=== PATIENT | male | born 1945 | race Caucasian/White ===

== ENCOUNTER → 2016-09-05 | Outpatient (CLI) | payer OTHER, BC ==
--- NOTE | 2016-09-05 17:33 | MR ---
MRI Pelvis Without Contrast History: Pelvic pain. Left buttock pain. Evaluate for sacroiliitis. History of prior lumbar surgery. Comparison: MRI from July 2016. Technique: MRI is performed of the pelvis using a 3 Lynette MRI system. Sagittal, coronal, and axial im aging was obtained with standard imaging sequences. [id number] is optimized to evaluate the sacroi liac joints. Findings: No evidence of bone marrow edema or erosion to indicate sacroiliitis. No evidence for osseo us bridging of the sacroiliac joints. No evidence of bone marrow edema to indicate insufficiency or s tress fracture of the sacrum. Sacral foramina are widely patent. There is degenerative disk and degenerative joint disease in the lower lumbar spine and evidence of l eft laminectomy. Edema is seen in the paraspinous musculature on the left. No evidence for avascular necrosis of the femoral head or stress fracture of the femoral neck. No elizabeth dence for joint effusion. There is mild early degenerative change in both hips. Enlarged nodular nons pecific prostate. Mild abnormal signal intensity is seen in the left common hamstring tendon origin w ithout edema or attenuation. Impression: 1. No evidence for sacroiliitis. 2. Degenerative disk and degenerative joint disease in the lower lumbar spine and evidence of prior s urgery. 3. Mild degenerative change in both hips. 4. Mild tendinopathy of the left common hamstring tendon origin. 5. Enlarged nonspecific prostate.
== END ==
LOC: FIMAGING 13:57
PROVIDERS: ATTEND Physical Medicine & Rehabilitation
DX: M46.1 Sacroiliitis, not elsewhere classified (principal); M51.36 Other intervertebral disc degeneration, lumbar region; M16.0 Bilateral primary osteoarthritis of hip; N40.0 Benign prostatic hyperplasia without lower urinary tract symptoms

== ENCOUNTER 2018-10-29 20:23 | Observation (INO) | payer OTHER, BC ==
[2018-10-29 21:28] LABS: PLATELET COUNT 307 10^3/uL (150-400)
--- NOTE | 2018-10-29 21:32 | EDPHY ---
H & P Time Seen by Provider: 10/29/18 20:41 HPI/ROS: HPI High blood pressure. Headache. Speech disturbance. 73-year-old male by private vehicle with his . The 2 of them or out to dinner about an hour prior to arrival to the emergency department. During dinner he developed a left-sided suboccipital headache which he described as gradual in onset, and tight in nature. He specifically describes having a muscle like tightness at the base of his skull going into his neck. He reports this feels better now. His noticed the during dinner he was mixing up syllables. This lasted for about 10 min. He has had difficulty controlling his blood pressure. She was concerned that he might be having stroke symptoms. She drove [place] to the emergency department for evaluation. ROS: Constitutional: No fever, no chills. As above. Eyes: No discharge. No changes in vision. ENT: No sore throat. No nasal congestion or rhinorrhea. Respiratory: No cough. No shortness of breath. Cardiac: No chest pain, no palpitations. Gastrointestinal: No abdominal pain, no vomiting, no diarrhea. Genitourinary: No hematuria. No dysuria or increased frequency with urination. Musculoskeletal: No back pain. No neck pain. No myalgias or arthralgias. As above. Skin: No rashes. Neurological: As above. No focal weakness or altered sensation. Past medical history: Hypertension, depression. He is currently managed at [facility] via Dr. Liu. Social history: Nonsmoker. Drinks alcohol rarely and socially. No IV drugs or street drugs. . [place] [address] [place] Physical Exam: General Appearance: Alert, no distress. This patient is responding to questions appropriately and in full sentences. This patient appears well- hydrated and well-nourished. Eyes: Pupils equal and round no pallor or injection. No lid edema, erythema or injection. Respiratory: There are no retractions, lungs are clear to auscultation with good air movement bilaterally. Cardiovascular: Regular rate and rhythm. No murmur. Gastrointestinal: Abdomen is soft and nontender, no masses, bowel sounds normal. No focal tenderness at McBurney's point. No Shepherd sign. Neurological: Motor sensory function is grossly intact. Cranial nerves are normal. No dysphagia or dysarthria. Cerebellar function is normal. Gait is normal. Skin: Warm and dry, no rashes. Musculoskeletal: Neck is supple and nontender. Extremities are symmetrical. All joints range without pain or impingement. Psychiatric: No agitation. No depression. Database: EKG: EKG time is 8:48 p.m.; EKG shows a narrow complex normal sinus rhythm with a ventricular rate of 72. Left ventricular hypertrophy noted. The KS, QRS, QT intervals are within normal limits. There are no ST-T wave changes indicative of ischemic or injury pattern. No evidence of right heart strain. Interpreted by me. Imaging: MRI of brain diffusion-weighted without contrast: Age-related changes. No evidence of infarct. Results discussed with staff radiologist Dr. Leandro Webster. Procedures: Emergency department course: Triage vital signs reviewed. On my evaluation is blood pressure is 178 over 100. He currently denies any significant headache. His neurologic exam is nonfocal. Both he and his were very concerned regarding his elevated blood pressure in the possibility of a stroke-like syndrome. MRI of the brain without contrast to be obtained. I explained and he them that I wanted to watch him and see if his blood pressure came down on its own in the emergency department. I explained to them that I did not feel his blood pressure needed to be emergently lowered at this time. 10:30 p.m., the patient was re-evaluated, resting comfortably at this time. Repeat neurologic Assessment is nonfocal. Discussed results of blood work and EKG. Results of MRI pending. Blood pressure currently 159/108. 10:45 p.m., the patient was re-evaluated. Repeat neurologic exam is nonfocal. Results of MRI discussed with the patient and his . His does not feel comfortable taking him home tonight because of their remote location. We will admit the patient for observation overnight by the hospitalist service. Both he and his endorse. Hospitalist paged. 10:50 p.m., spoke with on-call hospitalist, Dr. Patel. Case discussed in detail. Patient accepted for admission to the hospitalist service. CT angiogram of head neck to be obtained from the emergency department. Results will be reported to Dr. Patel. The patient's remaining emergency department course under my care has been uneventful. He was admitted to telemetry observation in stable condition. Differential Diagnosis: The differential diagnosis on this patient includes but is not limited to TIA, uncontrolled hypertension. Hypertensive encephalopathy unlikely. Hypertensive emergency unlikely. This represents a partial list of diagnoses considered. These considerations are based on history, physical exam, past history, reassessment and diagnostic testing. Smoking Status: Never smoked Constitutional: Initial Vital Signs Temperature (C) 36.9 C 10/29/18 20:25 Heart Rate 80 10/29/18 20:25 Respiratory Rate 16 10/29/18 20:25 Blood Pressure 183/109 H 10/29/18 20:25 O2 Sat (%) 97 10/29/18 20:25 O2 Delivery Mode Room Air Allergies/Adverse Reactions: No Known Allergies Allergy (Unverified 10/29/18 20:32) Home Medications: Medication Instructions Recorded Cetirizine HCl 10/29/18 Cymbalta 10/29/18 Diclofenac Sodium 10/29/18 Losartan/Hctz 50/12.5 10/29/18 Metoprolol ER-Hctz 100-12.5 mg 10/29/18 Omeprazole 10/29/18 Ranitidine HCl 10/29/18 Medical Decision Making - Diagnostics Imaging Results: Imaging Impressions Brain MRI 10/29/18 21:21 Impression: 1. Mild to moderate cerebral atrophy. 2. Mild nonspecific hyperintense T2/FLAIR signal abnormalities in the white matter of bilateral cerebral hemispheres. Differential diagnosis includes microvascular ischemic disease, post-infectious/post-inflammatory sequela, atypical demyelinating disease, or migraine-related sequela. 3. No acute infarct, hemorrhage, hydrocephalus, mass effect, or herniation. If symptoms worsen, additional imaging may be necessary. Findings discussed with Dung Mcclain MD at 22:27 hour, 10/29/2018. - Data Points Laboratory Results: Laboratory Results 10/29/18 20:45 10/29/18 20:45 10/29/18 10/29/18 10/29/18 20:52 20:52 20:45 WBC RBC Hgb POC Hgb 14.6 gm/dL gm/dL (13.7-17.5) Hct POC Hct 43 % % (40-51) MCV MCH MCHC RDW Plt Count MPV Neut % (Auto) Lymph % (Auto) Motley % (Auto) Eos % (Auto) Baso % (Auto) Nucleat RBC Rel Count Absolute Neuts (auto) Absolute Lymphs (auto) Absolute Monos (auto) Absolute Eos (auto) Absolute Basos (auto) Absolute Nucleated RBC Immature Gran % Immature Gran # POC Sodium 143 mEq/L mEq/L (135-145) Sodium 140 mEq/L mEq/L (135-145) POC Potassium 4.4 mEq/L mEq/L (3.3-5.0) Potassium 3.5 mEq/L mEq/L (3.5-5.2) POC Chloride 108 mEq/L mEq/L (97-110) Chloride 108 mEq/L mEq/L (97-110) Carbon Dioxide 22 mEq/l mEq/l (22-31) POC Total CO2 24 mEq/L mEq/L (22-31) Anion Gap 10 mEq/L mEq/L (6-14) POC BUN 23 mg/dL mg/dL (7-23) BUN 19 mg/dL mg/dL (7-23) Creatinine 0.9 mg/dL mg/dL (0.7-1.3) POC Creatinine 1.0 mg/dL mg/dL (0.7-1.3) Estimated GFR > 60 Glucose 100 mg/dL mg/dL (70-100) POC Glucose 96 mg/dL mg/dL (70-100) Calcium 9.2 mg/dL mg/dL (8.5-10.4) POC Troponin I 0.01 ng/mL ng/mL (0.00-0.08) 10/29/18 20:45 WBC 7.41 10^3/uL 10^3/uL (3.80-9.50) RBC 5.13 10^6/uL 10^6/uL (4.40-6.38) Hgb 14.2 g/dL g/dL (13.7-17.5) POC Hgb Hct 42.6 % % (40.0-51.0) POC Hct MCV 83.0 fL fL (81.5-99.8) MCH 27.7 pg L pg (27.9-34.1) MCHC 33.3 g/dL g/dL (32.4-36.7) RDW 14.5 % % (11.5-15.2) Plt Count 307 10^3/uL 10^3/uL (150-400) MPV 9.0 fL fL (8.7-11.7) Neut % (Auto) 64.7 % % (39.3-74.2) Lymph % (Auto) 19.4 % % (15.0-45.0) Motley % (Auto) 13.1 % H % (4.5-13.0) Eos % (Auto) 2.0 % % (0.6-7.6) Baso % (Auto) 0.7 % % (0.3-1.7) Nucleat RBC Rel Count 0.0 % % (0.0-0.2) Absolute Neuts (auto) 4.79 10^3/uL 10^3/uL (1.70-6.50) Absolute Lymphs (auto) 1.44 10^3/uL 10^3/uL (1.00-3.00) Absolute Monos (auto) 0.97 10^3/uL H 10^3/uL (0.30-0.80) Absolute Eos (auto) 0.15 10^3/uL 10^3/uL (0.03-0.40) Absolute Basos (auto) 0.05 10^3/uL 10^3/uL (0.02-0.10) Absolute Nucleated RBC 0.00 10^3/uL 10^3/uL (0-0.01) Immature Gran % 0.1 % % (0.0-1.1) Immature Gran # 0.01 10^3/uL 10^3/uL (0.00-0.10) POC Sodium Sodium POC Potassium Potassium POC Chloride Chloride Carbon Dioxide POC Total CO2 Anion Gap POC BUN BUN Creatinine POC Creatinine Estimated GFR Glucose POC Glucose Calcium POC Troponin I Point of Care Test Results: Chemistry 10/29/18 10/29/18 20:52 20:52 POC Sodium 143 mEq/L mEq/L (135-145) POC Potassium 4.4 mEq/L mEq/L (3.3-5.0) POC Chloride 108 mEq/L mEq/L (97-110) POC Total CO2 24 mEq/L mEq/L (22-31) POC BUN 23 mg/dL mg/dL (7-23) POC Creatinine 1.0 mg/dL mg/dL (0.7-1.3) POC Glucose 96 mg/dL mg/dL (70-100) POC Troponin I 0.01 ng/mL ng/mL (0.00-0.08) ISTAT H&H 10/29/18 20:52 POC Hgb 14.6 gm/dL gm/dL (13.7-17.5) POC Hct 43 % % (40-51) Departure - Departure Disposition: [facility] Inpatient Acute Clinical Impression: Uncontrolled hypertension, Transient speech disturbance Condition: Good Referrals: Ramesh Capellan MD [Primary Care Provider] - As per Instructions
[2018-10-29] MEDS ORDERED: ONDANSETRON 4 MG/2 ML VIAL IVP PRN (22:54)
[2018-10-29] MEDS ORDERED: ACETAMINOPHEN 325 MG TAB PO PRN (22:54)
[2018-10-29] MEDS ORDERED: ONDANSETRON DISINTEGRATING 4 MG TAB PO PRN (22:54)
[2018-10-29] MEDS ORDERED: IOPAMIDOL (ISOVUE-370) 150 ML BTL IV ONE (23:00)
--- NOTE | 2018-10-29 23:55 | PDGENHP ---
History and Physical - Chief Complaint Aphasia - History of Present Illness 73 yo M w/ hx of HTN presents with transient aphasia. The patient was at dinner with his when they noted a 5-10 minutes period of transient aphasia. Per report the patient was having difficulty pronouncing words. Shortly after he developed a headache so they came in to the ED for evaluation. In the ED BP was noted to be elevated on arrival. An MRI was performed that did no demonstrate acute stroke or other pathology. At this time he denies neurologic symptoms. He is being admitted for TIA work-up and risk stratification. Case discussed with ED physician Dr. Martinez; records reviewed and summarized above. History Information - Allergies/Home Medication List Allergies/Adverse Reactions: No Known Allergies Allergy (Unverified 10/29/18 20:32) Home Medications: Cetirizine HCl 10/29/18 [Last Taken Unknown] Cymbalta 10/29/18 [Last Taken Unknown] Diclofenac Sodium 10/29/18 [Last Taken Unknown] Losartan/Hctz 50/12.5 10/29/18 [Last Taken Unknown] Metoprolol ER-Hctz 100-12.5 mg 10/29/18 [Last Taken Unknown] Omeprazole 10/29/18 [Last Taken Unknown] Ranitidine HCl 10/29/18 [Last Taken Unknown] I have personally reviewed and updated: family history, medical history - Past Medical History hypertension - Surgical History Reports: spinal surgery - Family History Positive for: CAD. Negative for: stroke - Social History Smoking Status: Never smoked Review of Systems Review of Systems: ROS: 10pt was reviewed & negative except for what was stated in HPI & below Physical Exam Physical Exam: Temp Pulse Resp BP Pulse Ox 36.9 C 86 16 159/108 H 96 10/29/18 20:25 10/29/18 22:28 10/29/18 22:28 10/29/18 22:28 10/29/18 22:28 Constitutional: no apparent distress, not in pain Eyes: PERRL Ears, Nose, Mouth, Throat: moist mucous membranes, no oral mucosal ulcers Cardiovascular: regular rate and rhythym, no murmur, rub, or gallop Respiratory: no respiratory distress, clear to auscultation Gastrointestinal: normoactive bowel sounds, soft, non-tender abdomen Skin: warm, normal color Musculoskeletal: full muscle strength, no muscle tenderness Neurologic: AAOx3, sensation intact bilaterally, CN II-XII Intact, other (NIHSS 0), No weakness, No numbness, No facial droop Psychiatric: interacting appropriately, not anxious Lab Data & Imaging Review 10/29/18 20:45 10/29/18 20:45 WBC 7.41 10^3/uL (3.80-9.50) 10/29/18 20:45 RBC 5.13 10^6/uL (4.40-6.38) 10/29/18 20:45 Hgb 14.2 g/dL (13.7-17.5) 10/29/18 20:45 POC Hgb 14.6 gm/dL (13.7-17.5) 10/29/18 20:52 Hct 42.6 % (40.0-51.0) 10/29/18 20:45 POC Hct 43 % (40-51) 10/29/18 20:52 MCV 83.0 fL (81.5-99.8) 10/29/18 20:45 MCH 27.7 pg (27.9-34.1) L 10/29/18 20:45 MCHC 33.3 g/dL (32.4-36.7) 10/29/18 20:45 RDW 14.5 % (11.5-15.2) 10/29/18 20:45 Plt Count 307 10^3/uL (150-400) 10/29/18 20:45 MPV 9.0 fL (8.7-11.7) 10/29/18 20:45 Neut % (Auto) 64.7 % (39.3-74.2) 10/29/18 20:45 Lymph % (Auto) 19.4 % (15.0-45.0) 10/29/18 20:45 Knott % (Auto) 13.1 % (4.5-13.0) H 10/29/18 20:45 Eos % (Auto) 2.0 % (0.6-7.6) 10/29/18 20:45 Baso % (Auto) 0.7 % (0.3-1.7) 10/29/18 20:45 Nucleat RBC Rel Count 0.0 % (0.0-0.2) 10/29/18 20:45 Absolute Neuts (auto) 4.79 10^3/uL (1.70-6.50) 10/29/18 20:45 Absolute Lymphs (auto) 1.44 10^3/uL (1.00-3.00) 10/29/18 20:45 Absolute Monos (auto) 0.97 10^3/uL (0.30-0.80) H 10/29/18 20:45 Absolute Eos (auto) 0.15 10^3/uL (0.03-0.40) 10/29/18 20:45 Absolute Basos (auto) 0.05 10^3/uL (0.02-0.10) 10/29/18 20:45 Absolute Nucleated RBC 0.00 10^3/uL (0-0.01) 10/29/18 20:45 Immature Gran % 0.1 % (0.0-1.1) 10/29/18 20:45 Immature Gran # 0.01 10^3/uL (0.00-0.10) 10/29/18 20:45 POC Sodium 143 mEq/L (135-145) 10/29/18 20:52 Sodium 140 mEq/L (135-145) 10/29/18 20:45 POC Potassium 4.4 mEq/L (3.3-5.0) 10/29/18 20:52 Potassium 3.5 mEq/L (3.5-5.2) 10/29/18 20:45 POC Chloride 108 mEq/L (97-110) 10/29/18 20:52 Chloride 108 mEq/L (97-110) 10/29/18 20:45 Carbon Dioxide 22 mEq/l (22-31) 10/29/18 20:45 POC Total CO2 24 mEq/L (22-31) 10/29/18 20:52 Anion Gap 10 mEq/L (6-14) 10/29/18 20:45 POC BUN 23 mg/dL (7-23) 10/29/18 20:52 BUN 19 mg/dL (7-23) 10/29/18 20:45 Creatinine 0.9 mg/dL (0.7-1.3) 10/29/18 20:45 POC Creatinine 1.0 mg/dL (0.7-1.3) 10/29/18 20:52 Estimated GFR > 60 10/29/18 20:45 Glucose 100 mg/dL (70-100) 10/29/18 20:45 POC Glucose 96 mg/dL (70-100) 10/29/18 20:52 Calcium 9.2 mg/dL (8.5-10.4) 10/29/18 20:45 POC Troponin I 0.01 ng/mL (0.00-0.08) 10/29/18 20:52 Imaging Review: Imaging Impressions Brain MRI 10/29/18 21:21 Impression: 1. Mild to moderate cerebral atrophy. 2. Mild nonspecific hyperintense T2/FLAIR signal abnormalities in the white matter of bilateral cerebral hemispheres. Differential diagnosis includes microvascular ischemic disease, post-infectious/post-inflammatory sequela, atypical demyelinating disease, or migraine-related sequela. 3. No acute infarct, hemorrhage, hydrocephalus, mass effect, or herniation. If symptoms worsen, additional imaging may be necessary. Findings discussed with Dung Mcclain MD at 22:27 hour, 10/29/2018. Head CT 10/29/18 22:55 Impression: 1. Mild to moderate atrophy. 2. No hemorrhage, mass effect, or definite acute peripheral infarct. 3. Mild nonspecific hypodensities in the white matter of bilateral cerebral hemispheres. Differential diagnosis includes microvascular ischemic disease, post-infectious/post-inflammatory sequela, atypical demyelinating disease, or migraine-related sequela. Small white matter lacunar infarcts may also have this appearance. If symptoms worsen, additional imaging may be necessary. Findings discussed with Dung Mcclain MD at 23:40 hour, 10/29/2018. Head CTA 10/29/18 22:55 Impression: 1. Mild calcified plaque at the carotid bulb bilaterally without encroachment upon the lumen. 2. Normal CT angiogram of the [place], as detailed above. 3. Moderate degenerative disk disease at C5-C6 and at C6-C7. Note: All calculations were performed using NASCET criteria. Findings discussed with Demario Yi PA-C answering for Dr. Tanner at 23:40 hour, 10/29/2018. Neck CTA 10/29/18 22:55 Impression: 1. Mild calcified plaque at the carotid bulb bilaterally without encroachment upon the lumen. 2. Normal CT angiogram of the [place], as detailed above. 3. Moderate degenerative disk disease at C5-C6 and at C6-C7. Note: All calculations were performed using NASCET criteria. Findings discussed with Demario Yi PA-C answering for Dr. Tanner at 23:40 hour, 10/29/2018. Assessment & Plan Assessment: 73 yo M w/ hx of HTN presents with possible TIA. Plan: 1. ?TIA, Acute - Patient presents after transient period of aphasia. His symptoms have now resolved and he has a normal neurologic exam. CTA Head/Neck and MRI of brain do not demonstrate acute pathology. - Admit for observation - Monitor on telemetry - TTE w/ bubble ordered - Neurology consult placed - PT/OT/INSTRUCTIONAL ASSISTANT evaluations 2. HTN - Elevated BP on arrival but improving without intervention. - continue home medications pending reconciliation 3. Chronic back pain - Manages pain with NSAIDs, Tylenol, and antidepressants. Diet - Regular pending swallow screen Code - Full Ppx - SCDs Dispo - Admit under observation status
[2018-10-30 05:10] LABS: PLATELET COUNT 278 10^3/uL (150-400)
[2018-10-30] MEDS ORDERED: ASPIRIN 325 MG TAB PO SCH (09:15)
--- NOTE | 2018-10-30 11:00 | NEUROPROG ---
Assessment: [id number] - Neurology Consult: - CC: Speech Disturbance for 10 minutes on 10/29/18 - HPI: 10/30/18: Pts reported pt has a few months of seeming slightly cognitively different. On 10/30/18 pt had 5-10 min of transient speech problems. He developed a headache after the event so came to [facility] ER. Head CT, CTA head/neck , and brain MRI all negative for acute changes or stroke. Pt admitted for TIA evaluation. DDx includes TIA versus atypical migraine or acute confusional state from underlying mild dementia. 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 WIll get 24 hour telemetry and TTE but if no concerning findings then pt can discharge on aspirin (no on prior to TIA) and statin (LDL was 112 so goal was < 70 given suspected TIA). Pt to f/u with me in clinic in 1 -6 weeks at which time we can test for any underlying dementia. - PMHx: HTN, spinal surgery - SHx: no tobacco FHx: CAD - ROS: Pt denied acute fever, total vision loss, active severe chest pain, respiratory failure, total body severe rash, total bowel/bladder incontinence, psychosis, active seizures, or active bleeding - O: VS reviewed General: Alert Eyes: Fundoscopic exam not able to visualize optic disks CV: Heart RRR, no murmur, no carotid bruit Lungs: Clear to auscultation bilaterally, no rhonchi or rales Neuro: - Mental: . Oriented x person/place/date . concentration appears normal . speech fluency/comprehension normal . memory appears normal . fund of knowledge appear intact - Cranial Nerves: . II: PERRL, VFFTC . III/IV/: EOMI, no nystagmus, normal smooth pursuits, no Ptosis . V: facial sensation intact to LT . VII: face symmetric to eye closure and smile . VIII: hearing intact to conversation . IX/X: uvula raises symmetrically . XI: SCM 5/5 B/L strength . XII: tongue protrudes midline w/nl strength - Motor: . Tone: normal tone in all 4 extremity . Strength: no pronator drift, strength 5/5 throughout (B/L delt, bic, tri, hand emergency crew supervisor, hf/he, df/pf) - Reflexes: B/L bic 2/4 - Sensory: all 4 extremity intact to light touch - Coord: CABRERA wnl - Gait: deferred - Labs: 10/29/18 CBC wnl 10/30/18- CMP Potassium 3.2L, LDL 112H - Rads: 10/29/18- Head C: no bleed 10/29/18- CTA head/neck: no significant stenosis of vessel abnl 10/29/18- Brain MRI wo: mild to mod atrophy, no acute stroke or bleed, mild white matter disease (I Personally visualized the images on 10/30/18) - Assessment: 1. TIA causing 10 min of speech disturbance on 10/29/18 - Plan: - Begin aspirin 81 mg qd for stroke prevention (Not on it prior to TIA on ) - Begin statin for LDL goal < 70 (112) - H1AC goal < 7.0 (pending) - Blood pressure < 140/90 - Agree with PT/OT/Speech to determine rehab needs - TTE, 24 hour telemetry - F/U in neurology clinic 1-6 weeks after hospital discharge, we can test for any underlying dementia at that time Objective: Vital Signs Temp Pulse Resp BP Pulse Ox 36.9 C 66 18 166/88 H 96 10/30/18 08:00 10/30/18 08:00 10/30/18 08:00 10/30/18 08:00 10/30/18 08:00 Laboratory Results 10/30/18 04:25 10/30/18 04:25 10/29/18 10/30/18 10/31/18 05:59 05:59 05:59 Output Total 500 Balance -500 Allergies/Adverse Reactions: No Known Allergies Allergy (Unverified 10/29/18 20:32)
--- NOTE | 2018-10-30 11:12 | ECHO ---
[email or web address] [address] [address] Main: [phone] Echocardiography Examination Transthoracic Name: ARIELLE BOOTH MR#: [id number] Study Date: 10/30/2018 Study Time: 09:53 AM Date of : 1945 Age: 73 year(s) Height: 177.8 cm (70 in.) Weight: 75.3 kg (166 lb.) BSA: 1.93 m2 Gender: Male Examination: Echo Contrast: Image Quality: Adequate Rhythm: Heart Rate: BP: / Indication: ?TIA Procedure Staff Referring Physician: Manufacturing Test Technician: Maryann Sarmiento REY Reading Physician: Victor Manuel Zuñiga MD Requesting Provider: Indication: ?TIA Measurements Chambers AV/MV Label Value Normal Value Label Value Normal Value IVSd, 2D 1 cm (0.6cm - 1.1cm) AV PGmax 5 mmHg LVDd, 2D 4.9 cm (4.2cm - 5.9cm) AV Vmax 1.16 m/s LVDs, 2D 3.7 cm (2.1cm - 4cm) STEFANY (continuity eq. 2.5 cm2 LVEF, 2D 50 % (54% - 74%) Vmax) LVEF, BP 53 % (55% - 70%) MV A Vmax 0.64 m/s LVOT PGmax 2 mmHg MV DT 236 ms LVOT Vmax 0.71 m/s (0.7m/s - 1.1m/s) MV E' lateral 0.04 m/s LVOTd 2.3 cm (1.9cm - 2.1cm) MV E' mean 0.04 m/s LVPWd, 2D 1.2 cm (0.6cm - 1cm) MV E' septal 0.03 m/s RVDd, 2D 4.1 cm (1.9cm - 3.8cm) MV E Vmax 0.63 m/s TAPSE 2 cm MV E/A 0.98 LA Volume, BP 56 ml (18ml - 58ml) MV E/E' lateral 18 LADs, 2D 3.8 cm (3cm - 4cm) MV E/E' mean 18 LAESV index, BP 29 ml/m2 MV E/E' septal 19.1 (0.45 - 1.25) RA Area 17.2 cm2 TV/PV Additional Vessels Label Value Normal Value Label Value Normal Value RA Pressure 5 mmHg AoAsc 3.6 cm RVSP 29 mmHg AoRoot, 2D 3.3 cm (1.4cm - 2.6cm) TR Pmax 24 mmHg TR Vmax 2.46 m/s Patient: ARIELLE BOOTH Study Date: 10/30/2018 Page 1 of 3 09:53 AM PV PGmax 2 mmHg PV Vmax, Caliper 0.68 m/s (0.6m/s - 0.9m/s) Conclusions Left Ventricle: CONCLUSIONS:1)Low normal LV systolic function with a LVEF of 52% and no focal wall motion abnormalities.2)Borderline concentric LVH noted with normal diastolic function.3)Borderline left atrial enlargement noted.4)Mild to moderate MR without MV prolapse.5)Trivial TR with estimated normal PA pressures.6)Mildly enlarged ascending thoracic aorta (3.7cm).7)No PFO or ASD seen by color Doppler.8)No LV thrombus seen. Findings Left Ventricle: Left ventricle is normal in size. CONCLUSIONS: 1)Low normal LV systolic function with a LVEF of 52% and no focal wall motion abnormalities. 2)Borderline concentric LVH noted with normal diastolic function. 3)Borderline left atrial enlargement noted. 4)Mild to moderate MR without MV prolapse. 5)Trivial TR with estimated normal PA pressures. 6)Mildly enlarged ascending thoracic aorta (3.7cm). 7)No PFO or ASD seen by color Doppler. 8)No LV thrombus seen.EF evaluated by EF (biplane Figueroa's). The ejection fraction, measured by Simpsons method, is 53 %. The LV wall thickness is at the upper limits of normal. There are no regional wall motion abnormalities. Left ventricular diastolic function parameters are normal. Borderline concentric LV hypertrophy. Right Ventricle: Normal size right ventricle. Right ventricular wall thickness is normal. Right ventricular systolic function is normal. Left Atrium: The left atirum is borderline dilated. IAS: Normal appearing atrial septum. Right Atrium: The right atrium is mildly dilated. Mitral Valve: Normal . Mild to moderate mitral regurgitation. No mitral valve stenosis. There is mild mitral thickening. Aortic Valve: Aortic leaflets exhibit normal cuspal separation. No aortic valve regurgitation. There is no aortic stenosis. Tricuspid Valve: Tricuspid valve leaflets are normal in appearance and function. Trivial tricuspid regurgitation. Right Ventricular systolic pressure is measured at 29 mmHg. Pulmonary artery pressure normal. Pulmonic Valve: Pulmonic leaflets exhibit normal cuspal separation. No pulmonic valve regurgitation is evident. There is no pulmonic valve stenosis. Aorta: The aortic root size in 2D measures 3.3 cm. The aortic root exhibits normal size. The ascending aorta measures 3.6 cm. Ascending aorta is normal in size. Aorta Measurements AoRoot, 2D is 3.3 cm. IVC: The inferior vena cava is normal in size and course. Pericardium: No pericardial effusion. Patient: ARIELLE BOOTH Study Date: 10/30/2018 Page 2 of 3 09:53 AM Exam Details Procedure Ordered: Echo Procedure Status: Routine study Image Quality: Adequate Facility Location: Cardiac Echo 1 (No Signature Object) Patient: ARIELLE BOOTH Study Date: 10/30/2018 Page 3 of 3 09:53 AM [id number]
[2018-10-30 11:43] VITALS: BP 141/80
--- NOTE | 2018-10-30 14:37 | ASMTCMCOM ---
CM Note CM Note Notes: Pt in for TIA, neurology consulting. Pt resides with . PT/OT/MARKETING AND PUBLIC RELATIONS MANAGER recs pending. CM to follow for d/c planning. Date Signed: 10/30/2018 02:37 PM Electronically Signed By:JUANIS Richard
--- NOTE | 2018-10-30 17:02 | GDS ---
[f rep st] DISCHARGE SUMMARY DISCHARGE DIAGNOSIS: Suspected transient ischemic attack. HISTORY OF PRESENT ILLNESS: The patient is a pleasant 73-year-old gentleman with a past medical hist ory of uncontrolled hypertension, who was brought to [facility] by his after she had noted him having a 5 to 10 minute episode of difficulty articulating speech. For tunately, his symptoms resolved and he did not have any extremity weakness. He was admitted for furt her workup, which included an MRI of the brain, which did not show any areas of acute ischemia. A CT scan of the head was performed which showed mild to moderate atrophy but no hemorrhage. CT angiogra phy of the head and neck showed mild atherosclerotic plaque noted in the carotid arteries. Therapies were consulted and Neurology was consulted as well. It was recommended that he continue to take asp irin 81 mg daily as well as initiating statin therapy and improved blood pressure control. The patie nt tells me that his home blood pressures have been uncontrolled with systolic readings in the 160s t o 170s. He states that he is primarily working with Cardiology in regard to blood pressure managemen t. He is currently on metoprolol succinate 25 mg daily, as well as olmesartan 20 mg twice a day, whi ch he states good compliance. We had a long discussion during his hospitalization about improving hi s blood pressure control to mitigate risk of future vascular issues. HOSPITAL COURSE BY PROBLEM: 1. Transient ischemic attack: Suspected. Uncontrolled hypertension is likely the biggest risk fact or that he has currently. I recommend that we continue with the olmesartan 20 mg twice a day and met oprolol succinate 25 mg daily and add hydrochlorothiazide 25 mg daily. Atorvastatin 10 mg nightly rm s been started along with the recommendation to continue with aspirin 81 mg daily. Followup neurolog y consultation is also recommended. 2. Hypokalemia: Normal when he came in, but noted to be slightly low at 3.2 on the day after admiss ion. I inquired about a history of hypokalemia, but he states he has not been told of having low pot assium levels in the past. I think this should be monitored closely with initiation of hydrochloroth iazide. If he does have a persistently low potassium level, I would give some consideration to the p ossibility of hyperaldosteronism, which could be playing a role with his blood pressure as well. 3. Hypertension: Uncontrolled. As stated above, continue with current olmesartan 20 mg twice a day , metoprolol succinate 25 mg daily, hydrochlorothiazide 25 mg daily has been added at the time of dis charge. I have advised him not to take NSAIDs as these can elevate his blood pressures as well. Thi s will be a challenge as he does have chronic low back pain issues. I have recommended a followup vi sit with his bush regenerator in 1 to 2 weeks' time, as it sounds like his bush regenerator has been managing his hypertension. I have advised him to check 2 or 3 blood pressures per day and log these so that he can bring these in to his upcoming followup visit. 4. Chronic low-back pain: Patient was recently started on Cymbalta 1 to 2 weeks ago to see if this would help to address some of his low back pain. I encouraged him to be patient with this and give i t at least 6 to 8 weeks before making an assessment whether it is helping or not. 5. Deep venous thrombosis prophylaxis: Compression devices used. DISPOSITION: Patient appears stable for discharge home at this time. DISCHARGE PHYSICAL EXAMINATION: VITAL SIGNS: Temperature 36.9, blood pressure 166/88, heart rate 66 , respirations 18, satting 96% on room air. GENERAL: Patient appears comfortable sitting in chair a t the bedside. Awake, alert, conversant, no acute distress. No difficulty with articulation of spee ch. HEART: Regular, no atrial fibrillation noted on monitor. LUNGS: Normal respiratory effort. C lear on auscultation. ABDOMEN: Soft, nontender. : No Whitney catheter in place. EXTREMITIES: No significant edema appreciated. NOTABLE STUDIES: All as detailed within the HPI. DISCHARGE MEDICATIONS: 1. Aspirin 81 mg daily. 2. Atorvastatin 10 mg nightly. 3. Hydrochlorothiazide 25 mg daily. 4. Olmesartan 20 mg twice a day. 5. Metoprolol succinate XR 25 mg daily. 6. Ranitidine 150 mg nightly. 7. Omeprazole 40 mg daily. 8. Cymbalta 60 mg nightly. 9. Incruse 1 puff daily. DISCHARGE INSTRUCTIONS: I have recommended a followup visit with both his primary care provider, Dr. aRmesh Capellan, and his bush regenerator at [facility] in 1 to 2 weeks' time. Otherwise, followup vis it with Neurology is also recommended as well. 45 minutes time dedicated to discharge efforts today. /[id number]/MODL
--- NOTE | 2018-11-01 06:59 | CPEKG ---
Test Reason : OPEN Blood Pressure : / mmHG Vent. Rate : 072 BPM Atrial Rate : 072 BPM P-R Int : 168 ms QRS Dur : 113 ms QT Int : 427 ms P-R-T Axes : 044 -31 040 degrees QTc Int : 468 ms Sinus rhythm Left ventricular hypertrophy Confirmed by Carlos Daniel ([id number]) on 11/01/2018 6:58:49 AM Referred By: Dung Mcclain Confirmed By:Carlos Daniel
== END 2018-10-30 16:15 | disposition home or self-care (01) ==
LOC: F3N 23:54
PROVIDERS: ADMIT Student in an Organized Health Care Education/Training Program; ATTEND Student in an Organized Health Care Education/Training Program
DX: I10 Essential (primary) hypertension (principal); E87.6 Hypokalemia; M54.6 Pain in thoracic spine; G89.29 Other chronic pain; I65.23 Occlusion and stenosis of bilateral carotid arteries; I82.409 Acute embolism and thrombosis of unspecified deep veins of unspecified lower extremity; F32.9 Major depressive disorder, single episode, unspecified; M50.322 Other cervical disc degeneration at C5-C6 level; Z82.49 Family history of ischemic heart disease and other diseases of the circulatory system
CPT/HCPCS: 70450; 70496; 70498; 70551; 92523; 93005; 93306; 99285; G0378; Q9967; 82435-PO; 82565-PO; 82947-PO; 84132-PO; 84295-PO; 84484-ER; 84520-PO; 85014-ER